=== PATIENT | male | born 1975 | race Caucasian/White ===

== ENCOUNTER 2016-10-09 16:18 | Emergency (ER) | payer SELFPAY ==
[2016-10-09 17:05] LABS: BASOPHILS 0.1 % (0-2); EOSINOPHILS 0.1 % (0-7); HEMATOCRIT 50.1 % (42.0-54.0); HEMOGLOBIN 17.4 g/dL (13.5-17.5); IMMATURE GRANULOCYTES 0.9 % (0-5); LYMPHOCYTES 7.6 % (15-50); MCH 30.6 pg (26.0-34.0); MCHC 34.7 g/dL (31.0-37.0); MEAN PLATELET VOLUME 10.1 fL (7.4-10.4); MONOCYTES 6.7 % (2-11); NEUTROPHILS 84.6 % (40-80); RBC 5.69 10x6/uL (4.20-6.10); WBC 8.7 10x3/uL (4.8-10.8)
[2016-10-09 17:07] LABS: PLATELET COUNT 200 10x3/uL (130-400)
[2016-10-09 17:25] LABS: ALBUMIN 3.6 g/dL (3.4-5.0); ANION GAP 17.9 mmol/L (8-16); BILIRUBIN - TOTAL 2.06 mg/dL (0.2-1.3); CALCIUM 8.4 mg/dL (8.5-10.1); CARBON DIOXIDE 20.9 mmol/L (21.0-32.0); CREATININE - SERUM 1.7 mg/dL (0.6-1.3); PROTEIN - SERUM 7.2 g/dL (6.4-8.2)
[2016-10-09 17:26] LABS: POTASSIUM - SERUM 2.8 mmol/L (3.5-5.1)
[2016-10-09 17:34] LABS: APPEARANCE HAZY (CLEAR); COLOR ORANGE (YELLOW); LEUKOCYTE ESTERASE NEGATIVE (NEGATIVE); NITRITE NEGATIVE (NEGATIVE); PROTEIN 1+ mg/dL (NEGATIVE)
[2016-10-09 17:35] LABS: BILIRUBIN NEGATIVE (NEGATIVE); GLUCOSE 250 mg/dL (NEGATIVE); KETONE MODERATE mg/dL (NEGATIVE); UROBILINOGEN NORMAL (NORMAL)
[2016-10-09 17:37] LABS: RED CELLS - URINE 0-5 /hpf (0-5); WHITE CELLS - URINE 0-5 /hpf (0-5)
[2016-10-09 17:38] LABS: BACTERIA FEW /hpf (NONE SEEN); EPITHELIAL CELLS NSEEN /hpf (0-5)
[2016-10-09 17:43] LABS: UDS - AMPHET POSITIVE QUAL (NEGATIVE); UDS - BARB NEGATIVE QUAL (NEGATIVE); UDS - BENZO POSITIVE QUAL (NEGATIVE); UDS - COCAINE POSITIVE QUAL (NEGATIVE); UDS - METH NEGATIVE QUAL (NEGATIVE); UDS - OPIATE NEGATIVE QUAL (NEGATIVE); UDS - PCP NEGATIVE QUAL (NEGATIVE); UDS - THC NEGATIVE QUAL (NEGATIVE)
== END 2016-10-09 20:33 | disposition home or self-care (01) ==
LOC: D.ER 16:18
PROVIDERS: Emergency Medicine
DX: F23 Brief psychotic disorder (principal); F15.10 Other stimulant abuse, uncomplicated; F14.10 Cocaine abuse, uncomplicated; F13.10 Sedative, hypnotic or anxiolytic abuse, uncomplicated; R00.0 Tachycardia, unspecified

== ENCOUNTER 2016-12-29 12:03 | Emergency (ER) | payer OTHER ==
[2016-12-29 12:51] LABS: BASOPHILS 0.2 % (0-2); EOSINOPHILS 0.2 % (0-7); HEMOGLOBIN 18.3 g/dL (13.5-17.5); IMMATURE GRANULOCYTES 0.9 % (0-5); LYMPHOCYTES 8.4 % (15-50); MCH 29.3 pg (26.0-34.0); MCHC 34.5 g/dL (31.0-37.0); MCV 84.9 fL (80.0-100.0); MEAN PLATELET VOLUME 9.5 fL (7.4-10.4); MONOCYTES 8.4 % (2-11); NEUTROPHILS 81.9 % (40-80); PLATELET COUNT 190 10x3/uL (130-400); RBC 6.24 10x6/uL (4.20-6.10); RDW 13.9 % (11.5-14.5); WBC 6.6 10x3/uL (4.8-10.8)
[2016-12-29 13:13] LABS: ALBUMIN 4.1 g/dL (3.4-5.0); BILIRUBIN - TOTAL 2.7 mg/dL (0.2-1.3); CALCIUM 9.2 mg/dL (8.5-10.1); CARBON DIOXIDE 28.7 mmol/L (21.0-32.0); CREATININE - SERUM 1.9 mg/dL (0.6-1.3); POTASSIUM - SERUM 3.7 mmol/L (3.5-5.1); PROTEIN - SERUM 7.2 g/dL (6.4-8.2)
[2016-12-29 14:37] LABS: UDS - AMPHET POSITIVE QUAL (NEGATIVE); UDS - BARB NEGATIVE QUAL (NEGATIVE); UDS - BENZO POSITIVE QUAL (NEGATIVE); UDS - COCAINE POSITIVE QUAL (NEGATIVE); UDS - METH NEGATIVE QUAL (NEGATIVE); UDS - OPIATE NEGATIVE QUAL (NEGATIVE); UDS - PCP NEGATIVE QUAL (NEGATIVE); UDS - THC NEGATIVE QUAL (NEGATIVE)
[2016-12-29 14:46] LABS: APPEARANCE CLEAR (CLEAR); COLOR DK YELLOW (YELLOW)
[2016-12-29 14:47] LABS: BILIRUBIN NEGATIVE (NEGATIVE); GLUCOSE NEGATIVE (NEGATIVE); KETONE NEGATIVE (NEGATIVE); LEUKOCYTE ESTERASE NEGATIVE (NEGATIVE); NITRITE NEGATIVE (NEGATIVE); PROTEIN TRACE mg/dL (NEGATIVE); SPECIFIC GRAVITY 1.025 (1.005-1.020); UROBILINOGEN NORMAL (NORMAL)
== END 2016-12-29 17:05 | disposition home or self-care (01) ==
LOC: D.ER 12:03
PROVIDERS: Emergency Medicine
DX: F23 Brief psychotic disorder (principal); F17.200 Nicotine dependence, unspecified, uncomplicated

== ENCOUNTER 2018-11-27 22:30 | Inpatient (IN) | payer SELFPAY ==
[~2018-11-27] VITALS: Ht 175.3 cm; Wt 152.8 kg
[2018-11-27 22:57] LABS: UDS - AMPHET POSITIVE QUAL (NEGATIVE); UDS - BARB NEGATIVE QUAL (NEGATIVE); UDS - BENZO POSITIVE QUAL (NEGATIVE); UDS - COCAINE NEGATIVE QUAL (NEGATIVE); UDS - OPIATE NEGATIVE QUAL (NEGATIVE); UDS - PCP NEGATIVE QUAL (NEGATIVE); UDS - THC NEGATIVE QUAL (NEGATIVE)
[2018-11-27 23:01] LABS: AMORPHOUS SEDIMENT >1+ /lpf (NONE SEEN); APPEARANCE HAZY (CLEAR); BACTERIA NONE SEEN /hpf (NONE SEEN); BILIRUBIN NEGATIVE (NEGATIVE); COLOR YELLOW (YELLOW); EPITHELIAL CELLS 0-5 /hpf (0-5); GLUCOSE 500 mg/dL (NEGATIVE); GRANULAR CAST 0-5 /lpf (NONE SEEN); HYALINE CAST 0-5 /lpf (NONE SEEN); KETONE SMALL mg/dL (NEGATIVE); NITRITE NEGATIVE (NEGATIVE); PROTEIN 1+ mg/dL (NEGATIVE); SPECIFIC GRAVITY 1.025 (1.005-1.020); UROBILINOGEN NORMAL (NORMAL); WHITE CELLS - URINE NSEEN /hpf (0-5)
[2018-11-27 23:03] LABS: HEMATOCRIT 46.6 % (42.0-54.0); HEMOGLOBIN 16.4 g/dL (13.5-17.5); MCH 30.8 pg (26.0-34.0); MCHC 35.2 g/dL (31.0-37.0); MCV 87.6 fL (80.0-100.0); PLATELET COUNT 226 10x3/uL (130-400); RBC 5.32 10x6/uL (4.20-6.10); RDW 13.2 % (11.5-14.5); WBC 13.8 10x3/uL (4.8-10.8)
[2018-11-27 23:10] LABS: APTT 26.7 SECONDS (22.8-39.4); INR 1.27 (0.85-1.17); PROTIME 15.3 SECONDS (11.6-15.0)
[2018-11-27 23:25] LABS: ALBUMIN 3.7 g/dL (3.4-5.0); ALKALINE PHOSPHATASE 89 U/L (46-116); ALT (SGPT) 29 U/L (10-68); BILIRUBIN - TOTAL 1.04 mg/dL (0.2-1.3); CALC OSMOLALITY 286 mosm/kg (275-300); CALCIUM 9.2 mg/dL (8.5-10.1); CARBON DIOXIDE 10.2 mmol/L (21.0-32.0); CHLORIDE - SERUM 106 mmol/L (98-107); CREATININE - SERUM 2.2 mg/dL (0.6-1.3); GLUCOSE 161 mg/dL (74-106); POTASSIUM - SERUM 4.1 mmol/L (3.5-5.1); SODIUM 141 mmol/L (136-145); UREA NITROGEN 22 mg/dL (7-18); eGFR NON AFRICAN AMERICAN 35 mL/min (90-120)
[2018-11-27 23:28] LABS: CKMB 6.2 U/L (0.0-3.6); CREATINE KINASE 567 UL (21-232); MAGNESIUM - SERUM 4.6 mg/dL (1.8-2.4); THYROID STIMULATING HORMONE 5.61 uIU/mL (0.36-3.74); TROPONIN-I < 0.017 ng/mL (0.000-0.060)
[2018-11-27 23:39] LABS: EOSINOPHILS 1 % (0-7); LYMPHOCYTES 7 % (15-50); MONOCYTES 4 % (2-11); NEUTROPHILS 82 % (40-80); PLATELET ESTIMATE NORMAL
[2018-11-27 23:40] LABS: PLATELET MORPHOLOGY PLT CLUMPS PRESENT
[2018-11-27] MEDS ORDERED: LITHIUM CARBON300 MG PO (23:50)
--- NOTE | 2018-11-27 23:52 | NUR ---
SUZANNE DALEY, PHONE NUMBER [phone].
[2018-11-28] VITALS (8 sets, daily range): BP systolic 119–140; BP diastolic 70–96; BMI 29.6
--- NOTE | 2018-11-28 01:00 | NUR ---
PT UP TO BATHROOM AFTER HAVING A SMALL EPISODE OF BOWEL INCONTINENCE. LINENS CHANGED, URINAL EMPTIED- 200CC'S. RECONNECTED TO ALL MONITORS. BELONGINGS PLACED IN PATIENT BELONGING BAG. FRESH WATER GIVEN. NO DISTRESS NOTED.
--- NOTE | 2018-11-28 01:40 | NUR ---
ADMITTED FROM ER VIA WC AT THIS TIME ABLE TO AMBULATE JERI PRESENTS WITH ABRAISIONS TO ARMS AND FACE BED LOW AND LOCKED AND CALL LIGHT PROVIDED
--- NOTE | 2018-11-28 02:06 | NUR ---
REFUSES SCD 98.0 119/79 93 20 97% ON RA WT 200 HT 5'10"
--- NOTE | 2018-11-28 10:32 | NUR ---
PATIENT IS SITTING UP IN BED. HE PULLED OUT HIS IV. CATHETER INTACT.
--- NOTE | 2018-11-28 11:36 | NUR ---
STARTED NEW IV IN LEFT HAND. 20 G ONE STICK. IV FLUIDS GOING ORDERED. BACK SPASMS REPORTED. PATIENT REPORTS THAT BENADRYL HELPS. REPORTS THAT THE BACK SPASMS LAST FOR A DAY. AFTER COMING OFF METH.
[2018-11-28] MEDS ORDERED: LITHIUM CARBON300 MG PO (14:02)
--- NOTE | 2018-11-28 19:00 | NUR ---
PATIENT LAYING IN BED. PATIENT HAS NO COMPLAINTS AT THIS TIME. NO DISTRESS NOTED.
--- NOTE | 2018-11-29 00:45 | NUR ---
PATIENT LAYING IN BED. EYES CLOSED, CHEST RISING AND FALLING. NO DISTRESS NOTED.
[2018-11-29 04:46] LABS: BASOPHILS 0.1 % (0-2); EOSINOPHILS 0.6 % (0-7); HEMATOCRIT 39.2 % (42.0-54.0); HEMOGLOBIN 14.4 g/dL (13.5-17.5); IMMATURE GRANULOCYTES 0.4 % (0-5); LYMPHOCYTES 11.2 % (15-50); MCH 30.7 pg (26.0-34.0); MCHC 36.7 g/dL (31.0-37.0); MEAN PLATELET VOLUME 9.7 fL (7.4-10.4); MONOCYTES 9.1 % (2-11); NEUTROPHILS 78.6 % (40-80); RBC 4.69 10x6/uL (4.20-6.10); RDW 12.7 % (11.5-14.5)
[2018-11-29 04:52] LABS: MCV 83.6 fL (80.0-100.0); PLATELET COUNT 132 10x3/uL (130-400); WBC 8.1 10x3/uL (4.8-10.8)
[2018-11-29 05:01] LABS: ANION GAP 19.9 mmol/L (8-16); POTASSIUM - SERUM 3.6 mmol/L (3.5-5.1)
[2018-11-29 05:12] LABS: CARBON DIOXIDE 15.7 mmol/L (21.0-32.0); CREATININE - SERUM 5.6 mg/dL (0.6-1.3); MAGNESIUM - SERUM 3.1 mg/dL (1.8-2.4)
[2018-11-29 09:29] VITALS: BP 133/88
--- NOTE | 2018-11-29 09:56 | NUR ---
PT UP TO BATHROOM TO VOID AND STATES HE FEELS THOUGH HE HAS EMPTIED HIS BLADDER. POST VOID BLADDER SCAN REVEALED 86CC IN BLADDER.
[2018-11-29 11:10] LABS: ANION GAP 21.7 mmol/L (8-16); CALCIUM 7.1 mg/dL (8.5-10.1); CARBON DIOXIDE 13.4 mmol/L (21.0-32.0); CREATININE - SERUM 6.5 mg/dL (0.6-1.3); POTASSIUM - SERUM 4.1 mmol/L (3.5-5.1)
[2018-11-29 11:58] VITALS: BP 134/84
--- NOTE | 2018-11-29 12:20 | CN ---
PATIENT NAME:AMOR DALEY MEDICAL RECORD: [id number] : 79 LOCATION:D. D.[id number] ADMIT DATE: 11/28/18 ACCOUNT: [id number] CONSULTING PHYSICIAN: CODIE PURI MD REFERRING PHYSICIAN: ROSEMARY COUCH MD DATE OF CONSULTATION: 11/28/2018 IDENTIFYING DATA: The patient is 43 years old and he is admitted to the hospital on a voluntary basis. CHIEF COMPLAINT: None. HISTORY OF PRESENT ILLNESS: The patient has been using methamphetamine and became paranoid, and the police were called, and he was agitated and paranoid around the police and they had to actually tase him and pepper spray him and brought him to the hospital. He was agitated in the hospital and was given Haldol and Versed. Today, he is calm, awake, alert and cooperative. His is with him. They indicate that he is an intermittent user of methamphetamine and by that they mean he uses methamphetamine a few times a year, and every time he does he becomes agitated and paranoid. He has no thoughts of harming himself or others. His primary care physician has diagnosed him with bipolar and started him on lithium, but not entirely sure that is correct. I do not disagree with what he did. I just think that the mood lability may largely be related to a substance use disorder that the primary care physician was not aware of. ASSESSMENT: Methamphetamine abuse. PLAN: The patient is not acutely dangerous to himself or others. He is no longer paranoid. He is going to see Dr. Desiree Rascon, later in December and in the interim he is going to go to [facility] or [facility]. 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 TRANSINT:[id number] Voice Confirmation ID: [id number] DOCUMENT ID: [id number] CODIE PURI MD at 1220 CC: [id number] DICTATION DATE: 11/28/18 1515 MANAGER POKER: 11/28/18 1542 ADM IN [address] [id number] [place] [address]
[2018-11-29 14:56] VITALS: BP 132/80
--- NOTE | 2018-11-29 15:16 | NUR ---
I have reviewed this patient and I concur with the Shift Assessment completed by the Licensed Practical Nurse today this shift.
--- NOTE | 2018-11-29 19:00 | NUR ---
PATIENT SITTING UP IN BED. PATIENT ON PHONE AT THIS TIME. NO COMPLAINTS AND NO DISTRESS NOTED.
[2018-11-29 20:00] VITALS: BP 130/75
--- NOTE | 2018-11-30 02:08 | NUR ---
I have reviewed this patient and I concur with the Shift Assessment completed by the Licensed Practical Nurse today this shift.
[2018-11-30 04:00] VITALS: BP 134/76
[2018-11-30 06:29] LABS: BASOPHILS 0.1 % (0-2); EOSINOPHILS 0.5 % (0-7); HEMATOCRIT 39.9 % (42.0-54.0); HEMOGLOBIN 14.3 g/dL (13.5-17.5); IMMATURE GRANULOCYTES 0.6 % (0-5); LYMPHOCYTES 8.8 % (15-50); MCH 29.9 pg (26.0-34.0); MCHC 35.8 g/dL (31.0-37.0); MCV 83.3 fL (80.0-100.0); MEAN PLATELET VOLUME 9.7 fL (7.4-10.4); PLATELET COUNT 146 10x3/uL (130-400); RBC 4.79 10x6/uL (4.20-6.10); RDW 12.6 % (11.5-14.5); WBC 8.7 10x3/uL (4.8-10.8)
[2018-11-30 06:45] LABS: ANION GAP 24.9 mmol/L (8-16); CALCIUM 7.3 mg/dL (8.5-10.1); CARBON DIOXIDE 11.4 mmol/L (21.0-32.0); POTASSIUM - SERUM 4.3 mmol/L (3.5-5.1)
[2018-11-30 06:46] LABS: CREATININE - SERUM 8.5 mg/dL (0.6-1.3)
--- NOTE | 2018-11-30 08:00 | NUR ---
REPORT RECIEVED. PT IS LYING ON RIGHT SIDE. RR EVEN AND UNLBAORED. HE HAS A L HAND PIV INFUSING NS @125. SPOKE WITH AND PT ABOUT LAB RESULTS AND BLADDER SCAN RESULTS. BED LOCKED AND IN LOWEST POSITION. CALL LIGHT WITHIN REACH. WILL CTM.
[2018-11-30 08:47] VITALS: BP 133/78
[2018-11-30 08:53] VITALS: BP 133/78
--- NOTE | 2018-11-30 12:17 | NUR ---
I have reviewed this patient and I concur with the Shift Assessment completed by the Licensed Practical Nurse today this shift.
[2018-11-30 12:52] VITALS: BP 138/86
[2018-11-30 15:34] LABS: POTASSIUM - URINE 4.3 MMOL/L (12.0-62.0); PROTEIN - URINE 20.4 mg/dL (0.0-11.9)
[2018-11-30 15:36] LABS: APPEARANCE CLEAR (CLEAR); BILIRUBIN NEGATIVE (NEGATIVE); COLOR YELLOW (YELLOW); GLUCOSE NEGATIVE (NEGATIVE); KETONE NEGATIVE (NEGATIVE); NITRITE NEGATIVE (NEGATIVE); PROTEIN TRACE mg/dL (NEGATIVE); UROBILINOGEN NORMAL (NORMAL)
[2018-11-30 15:41] LABS: CREATINE KINASE 3846 UL (21-232)
[2018-11-30 15:43] LABS: CKMB 23.5 U/L (0.0-3.6)
[2018-11-30 16:27] VITALS: BP 129/75
[2018-11-30 20:00] VITALS: BP 149/98
[2018-12-01] VITALS: BP 139/96
--- NOTE | 2018-12-01 00:15 | NUR ---
PATIENT LAYING IN BED. NO COMPLAINTS AT THIS TIME. NO DISTRESS NOTED.
--- NOTE | 2018-12-01 03:19 | NUR ---
I have reviewed this patient and I concur with the Shift Assessment completed by the Licensed Practical Nurse today this shift.
--- NOTE | 2018-12-01 03:41 | NUR ---
PATIENT LAYING IN BED. PATIENT HAS NO COMPLAINTS AT THIS TIME. NO DISTRESS NOTED.
[2018-12-01 04:00] VITALS: BP 140/95
[2018-12-01 06:37] LABS: BASOPHILS 0.1 % (0-2); EOSINOPHILS 2.1 % (0-7); HEMATOCRIT 40.1 % (42.0-54.0); HEMOGLOBIN 14.8 g/dL (13.5-17.5); IMMATURE GRANULOCYTES 0.8 % (0-5); LYMPHOCYTES 15.8 % (15-50); MCH 30.1 pg (26.0-34.0); MCHC 36.9 g/dL (31.0-37.0); MCV 81.5 fL (80.0-100.0); MEAN PLATELET VOLUME 9.9 fL (7.4-10.4); MONOCYTES 7.6 % (2-11); NEUTROPHILS 73.6 % (40-80); RBC 4.92 10x6/uL (4.20-6.10); RDW 12.6 % (11.5-14.5); WBC 7.1 10x3/uL (4.8-10.8)
[2018-12-01 06:56] LABS: PLATELET COUNT 181 10x3/uL (130-400)
[2018-12-01 07:36] LABS: CALCIUM 7.8 mg/dL (8.5-10.1); CHLORIDE - SERUM 108 mmol/L (98-107); CREATININE - SERUM 7.9 mg/dL (0.6-1.3); SODIUM 141 mmol/L (136-145); UREA NITROGEN 49 mg/dL (7-18); eGFR NON AFRICAN AMERICAN 8 mL/min (90-120)
[2018-12-01 07:39] LABS: CALC OSMOLALITY 295 mosm/kg (275-300); CARBON DIOXIDE 21.6 mmol/L (21.0-32.0); CREATINE KINASE 1176 UL (21-232); GLUCOSE 126 mg/dL (74-106); POTASSIUM - SERUM 3.2 mmol/L (3.5-5.1)
[2018-12-01 07:40] LABS: CKMB 6.2 U/L (0.0-3.6)
--- NOTE | 2018-12-01 08:00 | NUR ---
PT RESTING IN BED, SHIFT ASSESSMENT PERFORMED. DENIES ANY NEEDS AT THIS TIME. WILL CONT TO FOLLOW POC
[2018-12-01 09:10] LABS: HEPATITIS C ANTIBODY <0.1 S/CO RAT (0.0-0.9)
[2018-12-01 09:55] VITALS: BP 141/85
--- NOTE | 2018-12-01 12:20 | NUR ---
PT RESTING IN BED, DENIES ANY NEEDS AT THIS TIME, WILL CONT TO FOLLOW POC
[2018-12-01 13:21] VITALS: Ht 175.3 cm; Wt 152.8 kg
[2018-12-01 14:47] VITALS: BP 137/90
--- NOTE | 2018-12-01 17:53 | NUR ---
PT RESTING IN BED, DENIES ANY NEEDS AT THIS TIME, WILL CONT TO FOLLOW POC.
--- NOTE | 2018-12-01 19:54 | NUR ---
PT CARE ASSUMED. RR EVEN AND UNLABORED. NO S/S OF DISTRESS NOTED AT THIS TIME. PT DENIES PAIN OR DISCOMFORT. CALL LIGHT IN REACH. WILL CTM.
[2018-12-01 20:00] VITALS: BP 159/99
[2018-12-02] VITALS: BP 141/83
[2018-12-02 04:00] VITALS: BP 123/81
[2018-12-02 06:20] LABS: BASOPHILS 0.2 % (0-2); EOSINOPHILS 3.4 % (0-7); HEMATOCRIT 39.5 % (42.0-54.0); HEMOGLOBIN 14.5 g/dL (13.5-17.5); IMMATURE GRANULOCYTES 0.6 % (0-5); MCH 30.5 pg (26.0-34.0); MCHC 36.7 g/dL (31.0-37.0); MEAN PLATELET VOLUME 9.7 fL (7.4-10.4); NEUTROPHILS 65.8 % (40-80); PLATELET COUNT 178 10x3/uL (130-400); RBC 4.76 10x6/uL (4.20-6.10); RDW 12.7 % (11.5-14.5); WBC 6.4 10x3/uL (4.8-10.8)
[2018-12-02 06:29] LABS: ANION GAP 12.6 mmol/L (8-16); CALCIUM 8.1 mg/dL (8.5-10.1); CARBON DIOXIDE 30.9 mmol/L (21.0-32.0); CREATININE - SERUM 5.9 mg/dL (0.6-1.3); POTASSIUM - SERUM 3.5 mmol/L (3.5-5.1)
[2018-12-02 08:00] VITALS: BP 139/85
[2018-12-02 10:44] LABS: CREATINE KINASE 493 UL (21-232)
--- NOTE | 2018-12-02 10:50 | NUR ---
LEFT HAND 20G IV LEAKING. DC'D WITH CATH INTACT. PT STATES HE WANTS TO SHOWER BEFORE HE GETS A NEW IV. TAKER AWAY TO GET PT SHOWER STUFF.
[2018-12-02 11:06] LABS: CKMB 1.4 U/L (0.0-3.6)
[2018-12-02] MEDS ORDERED: PROTONIX40 MG PO (11:32)
[2018-12-02] MEDS ORDERED: LITHIUM CARBON300 MG PO (11:32)
[2018-12-02 12:00] VITALS: BP 138/73
--- NOTE | 2018-12-02 12:58 | NUR ---
THE PATIENT WAS LYING IN BED AND WATCHING TELEVISION WHEN STAFF ENTERED HIS ROOM. BED IS IN THE LOW POSITION WITH SIDERAILS X2 AND CALL LIGHT WITHIN REACH. THE PATIENT WAS EDUCATED ON THE USE OF A CALL LIGHT AND DEMONSTRATES UNDERSTANDING VIA TEACHBACK METHOD. THE PATIENT APPEARS COMFORTABLE WITH NO QUESTIONS OR COCNERNS AT THIS TIME.
[2018-12-02 14:45] VITALS: BP 140/73
== END 2018-12-02 17:34 | disposition home or self-care (01) | DRG 682 ==
LOC: D.ER 22:30 → D.M2 11-28 00:58 → D.M3 11-28 00:58 → OBSVTIME 11-28 00:58 → D.M2 11-28 01:25
PROVIDERS: Family Medicine; Internal Medicine; Internal Medicine Nephrology; ADMIT Family Medicine; ATTEND Family Medicine
DX: N17.9 Acute kidney failure, unspecified (principal); G93.41 Metabolic encephalopathy; E83.41 Hypermagnesemia; F15.10 Other stimulant abuse, uncomplicated; F31.9 Bipolar disorder, unspecified; F20.9 Schizophrenia, unspecified; K74.60 Unspecified cirrhosis of liver